=== PATIENT | male | born 1995 | race Caucasian/White ===

== ENCOUNTER 2017-12-03 22:13 | Emergency (ER) | payer SELFPAY ==
[~2017-12-03] VITALS: Ht 172.7 cm; Wt 117.9 kg
--- NOTE | 2017-12-03 22:20 | NUR ---
TO BED 4. PT AA/OX4 COMPLAINING OF PAIN WITH URINATION AND BLOOD IN URINATION. PT STATES," THIS HAS BEEN GOING ON FOR A LONG TIME BUT WORSE TODAY." NO S/S SOB. AMBULATED WITH STEADY GAIT. SKIN PINK, WARM, DRY. NO N/V. ACTIVE BOWEL SOUNDS. VSS. NAD. STABLE CONDITION. WILL CONTINUE TO MONITOR.
[2017-12-03] MEDS: KETOROLAC TROMETHAMINE INJ 30 MG/ML VIAL IV ONE (23:00)
[2017-12-03] MEDS: IV NS 0.9% 1,000 ML BAG IV ONE (23:00)
[2017-12-03] MEDS: ONDANSETRON HCL/PF 4 MG/2 ML VIAL IVP ONE (23:00)
[2017-12-03 23:06] LABS: BASOPHILS # (AUTO) 0.1 /CMM (0.0-0.2); BASOPHILS % (AUTO) 0.4 % (0.0-2.0); EOSINOPHILS % (AUTO) 0.8 % (0.0-6.0); HEMATOCRIT 47 % (39-51); HEMOGLOBIN 15.1 g/dL (13.5-17.5); MEAN CORPUSCULAR HEMOGLOBIN 28 PG (26.0-33.0); MEAN CORPUSCULAR HGB CONC 32 g/dl (31.0-36.0); MEAN CORPUSCULAR VOLUME 88 fL (80-96); MONOCYTES # (AUTO) 1.1 /CMM (0.1-1.30); MONOCYTES % (AUTO) 5.9 % (2.0-12.0); NEUTROPHILS # (AUTO) 15.1 /CMM (1.8-8.9); NEUTROPHILS % (AUTO) 81.9 % (43.0-81.0); PLATELET COUNT (AUTO) 327 /CMM (150-450); RDW COEFFICIENT OF VARIATION 13.9 (11.5-15.0); RED BLOOD CELL COUNT(AUTO) 5.35 MIL/uL (4.5-6.0); WHITE BLOOD COUNT (AUTO) 18.4 K/uL (4.3-11.0)
[2017-12-03 23:10] LABS: APPEARANCE,URINE CLOUDY (CLEAR); BILIRUBIN,URINE 1+ (NEGATIVE); BLOOD, URINE 3+ Ery/uL (NEGATIVE); COLOR,URINE AMBER (YELLOW); KETONES,URINE NEGATIVE (NEGATIVE); LEUKOCYTE ESTERASE ,URINE 3+ (NEGATIVE); NITRITE, URINE POSITIVE (NEGATIVE); PROTEIN,URINE 2+ mg/dl (NEGATIVE); UGLUCOSE NEGATIVE (NEGATIVE); UROBILINOGEN,URINE 0.2 EU/dL (0.2)
[2017-12-03] MEDS ORDERED: ONDANSETRON HCL/PF 4 MG/2 ML VIAL ONE (23:11)
[2017-12-03] MEDS ORDERED: KETOROLAC TROMETHAMINE INJ 30 MG/ML VIAL ONE (23:11)
[2017-12-03 23:22] LABS: CALCIUM, SERUM 9.4 mg/dL (8.5-10.1); POTASSIUM 3.3 mmol/L (3.5-5.1)
[2017-12-03 23:26] LABS: BACTERIA,URINE None seen /HPF (None Seen); RBC,URINE 51-80 /HPF (0-2); SQUAMOUS EPITHELIAL CELL,UR Few /HPF (None Seen)
[2017-12-03 23:30] LABS: BILIRUBIN,DIRECT 0.1 mg/dL (0.0-0.2); BILIRUBIN,TOTAL 0.5 mg/dL (0.2-1.0); TOTAL PROTEIN, SERUM 8.7 g/dL (6.4-8.2)
--- NOTE | 2017-12-03 23:44 | NUR ---
Patient is resting comfortably in bed with eyes closed. Easily aroused. VSS
[2017-12-03] MEDS ORDERED: CIPROFLOXACIN IV RTU 200 ML IV ONE (23:59)
[2017-12-04] MEDS: CIPROFLOXACIN IV RTU 400 MG in PREMIX 1 EA IV SCH ×2
[2017-12-04 00:12] LABS: BAND % (MANUAL) 2 % (0.0-5.0); LYMPHOCYTES % (MANUAL) 13 % (16-48); MONOCYTES % (MANUAL) 5 % (0-11.0); NEUTROPHILS % (MANUAL) 80 (42-76)
--- NOTE | 2017-12-04 01:22 | NUR ---
Patient discharged to home in stable condition. Written and verbal after care instructions given. Patient verbalizes understanding of instruction.IV removed. Catheter intact and site benign. Pressure and 4x4 applied to site. No bleeding noted.
[2017-12-04 01:27] VITALS: BP 122/75
== END 2017-12-04 01:29 | disposition home or self-care (01) ==
LOC: ER 22:13
DX: N39.0 Urinary tract infection, site not specified (principal); Z87.442 Personal history of urinary calculi
CPT/HCPCS: 36415; 80048-TC; 80076-TC; 81000-TC; 83690-TC; 85025-TC; 87086-TC; 87186-TC; A4216; A4606; J0744; J1885; J2405; J7030; Z7610

== ENCOUNTER 2019-07-29 13:16 | Emergency (ER) | payer MEDICAID, OTHER ==
[~2019-07-29] VITALS: Ht 172.7 cm; Wt 90.7 kg
[2019-07-29 13:27] VITALS: BP 132/75
[2019-07-29] MEDS ORDERED: GELATIN SPONGE,ABSORBABLE 1 SPONGE SPONGE TP ONE (13:28)
--- NOTE | 2019-07-29 13:30 | NUR ---
SEEN AND EXAMINED BY .
--- NOTE | 2019-07-29 13:40 | NUR ---
WOUND DRESSING DONE BY AND SUBMARINE CABLE EQUIPMENT TECHNICIAN
--- NOTE | 2019-07-29 13:49 | NUR ---
Patient discharged to home in stable condition. Written and verbal after care instructions given. Patient verbalizes understanding of instruction.
== END 2019-07-29 13:50 | disposition home or self-care (01) ==
LOC: ER 13:16
DX: D18.01 Hemangioma of skin and subcutaneous tissue (principal); Z87.442 Personal history of urinary calculi; R43.9 Unspecified disturbances of smell and taste; Z20.828 Contact with and (suspected) exposure to other viral communicable diseases
CPT/HCPCS: 99281; A6403

== ENCOUNTER 2025-01-31 12:49 | Emergency (ER) | payer MEDICAID, OTHER ==
[~2025-01-31] VITALS: Ht 172.7 cm; Wt 117.9 kg
[2025-01-31] MEDS ORDERED: HYDR-500 PO (13:08)
[2025-01-31] MEDS ORDERED: PRED20TA PO (13:08)
[2025-01-31] MEDS ORDERED: VALA100026 PO (13:17)
[2025-01-31 13:32] VITALS: BP 125/83; TEMP 97.6; O2SAT 99
== END 2025-01-31 13:33 | disposition home or self-care (01) ==
LOC: ER 12:49
DX: L50.1 Idiopathic urticaria (principal); K76.0 Fatty (change of) liver, not elsewhere classified; Z79.52 Long term (current) use of systemic steroids; Z87.442 Personal history of urinary calculi
CPT/HCPCS: 99283; Q0163; J7512 ×2

== ENCOUNTER 2025-02-07 10:57 | Emergency (ER) | payer OTHER ==
[~2025-02-07] VITALS: Ht 172.7 cm; Wt 124.7 kg
[~2025-02-07 10:57] MED LIST: HYDR-500 PO; PRED20TA PO; VALA100026 PO
[2025-02-07 11:03] VITALS: BP 143/84; TEMP 98; O2SAT 99
[2025-02-07] MEDS ORDERED: TRIA15OI9 TP (11:12)
== END 2025-02-07 11:35 | disposition home or self-care (01) ==
LOC: ER 10:57
DX: K76.0 Fatty (change of) liver, not elsewhere classified (principal); L24.7 Irritant contact dermatitis due to plants, except food; Z79.52 Long term (current) use of systemic steroids; Z79.624 Long term (current) use of inhibitors of nucleotide synthesis; Z87.442 Personal history of urinary calculi